=== PATIENT | male | born 1980 | race Caucasian/White ===

== ENCOUNTER 2020-12-02 10:37 | Emergency (ER) | payer OTHER ==
[2020-12-02 10:56] VITALS: PULSE 95; BMI 33.0
[2020-12-02 13:04] LABS: BASO % 0.8 % (0-2.0); EOS % 1.4 % (0-4.5); HEMATOCRIT 43.1 % (35.4-49); HEMOGLOBIN 14.2 GM/dL (11.7-16.9); LYMPH % 32.7 % (8-40); MCH 28.2 pg (25.7-33.7); MEAN CELL VOLUME 85.6 fl (80-96); MEAN PLT VOLUME 9.3 fl (7.5-11.1); MONO % 6.9 % (3.8-10.2); NEUT % 58.2 % (42.8-82.8); PLATELET COUNT 275 K/MM3 (134-434); RBC 5.04 M/mm3 (4.00-5.60); RDW 13.5 % (11.9-15.9); WHITE BLOOD COUNT 7.4 K/mm3 (4.0-10.0)
[2020-12-02 13:30] LABS: CHLORIDE 107 mmol/L (98-107); SODIUM 139 mmol/L (136-145)
[2020-12-02 13:33] LABS: CALCIUM 9.2 mg/dL (8.5-10.1)
[2020-12-02 13:34] LABS: ALBUMIN 3.7 g/dl (3.4-5.0); ANION GAP 5 MMOL/L (8-16); BLOOD UREA NITROGEN 10.4 mg/dL (7-18); CO2 28 mmol/L (21-32); GLUCOSE,RANDOM 88 mg/dL (74-106)
[2020-12-02 13:36] LABS: SGOT/AST 16 U/L (15-37); SGPT/ALT 29 U/L (13-61)
[2020-12-02 13:37] LABS: CREATININE 0.9 mg/dL (0.55-1.3)
[2020-12-02 13:38] LABS: BILIRUBIN,TOTAL 0.5 mg/dL (0.2-1)
[2020-12-02 13:39] LABS: TOT PROT 7.3 g/dl (6.4-8.2)
[2020-12-02 13:40] LABS: ALK PHOS 79 U/L (45-117)
[2020-12-02 15:08] VITALS: BP 141/88; TEMP 98
== END 2020-12-02 15:24 | disposition home or self-care (01) ==
LOC: JER 10:37
DX: R07.9 Chest pain, unspecified (principal)
CPT/HCPCS: 36415; 71046-TC-FY; 80053; 82550; 84484; 85025; 93005; 93010; 99283-25

== ENCOUNTER 2021-12-07 11:13 | Emergency (ER) | payer OTHER ==
[2021-12-07 11:50] VITALS: BP 155/96; PULSE 100; TEMP 98; BMI 32.8
[2021-12-07] MEDS ORDERED: IBUPROFEN 600 MG TABLET (FP) PO ONE ×2 (12:24→12:44)
== END 2021-12-07 12:54 | disposition home or self-care (01) ==
LOC: JERFT 11:13
DX: H60.501 Unspecified acute noninfective otitis externa, right ear (principal)
CPT/HCPCS: 99283-25

== ENCOUNTER 2022-10-24 15:30 | Emergency (ER) | payer OTHER ==
[2022-10-24 15:38] VITALS: RESP 18; BMI 33.6
[2022-10-24 18:11] LABS: BASO % 0.8 % (0-2.0); EOS % 3.5 % (0-4.5); HEMATOCRIT 44.1 % (35.4-49); HEMOGLOBIN 14.7 GM/dL (11.7-16.9); LYMPH % 38.3 % (8-40); MCH 27.6 pg (25.7-33.7); MCHC 33.3 g/dl (32.0-35.9); MEAN CELL VOLUME 82.8 fl (80-96); MEAN PLT VOLUME 9.2 fl (7.5-11.1); MONO % 10.7 % (3.8-10.2); NEUT % 46.7 % (42.8-82.8); PLATELET COUNT 259 10^3/uL (134-434); RBC 5.33 M/mm3 (4.00-5.60); RDW 13.3 % (11.9-15.9); WHITE BLOOD COUNT 6.4 K/mm3 (4.0-10.0)
[2022-10-24] MEDS ORDERED: ACETAMINOPHEN 500 MG TABLET (FP) PO ONE (18:16)
[2022-10-24] MEDS ORDERED: SODIUM CHLORIDE 0.9% 1000 ML INFUS.BAG IV ONE (18:16)
[2022-10-24 18:25] LABS: INR 0.97 (0.83-1.09); PROTHROMBIN TIME (PATIENT) 11.3 SEC (9.7-13.0)
[2022-10-24 18:35] LABS: CALCIUM 9.7 mg/dL (8.5-10.1)
[2022-10-24 18:36] LABS: ALBUMIN 3.6 g/dl (3.4-5.0); BLOOD UREA NITROGEN 18.4 mg/dL (7-18)
[2022-10-24 18:39] LABS: CREATININE 1.1 mg/dL (0.55-1.3)
[2022-10-24 18:40] LABS: BILIRUBIN,TOTAL 0.3 mg/dL (0.2-1); TOT PROT 7.2 g/dl (6.4-8.2)
[2022-10-24] MEDS ORDERED: ACETAMINOPHEN 500 MG TABLET (FP) ONE (18:40)
[2022-10-24 18:44] LABS: N-TERMINAL BNP 7.2 pg/ml (5-125)
[2022-10-24 20:24] VITALS: BP 137/90; PULSE 79; TEMP 98.3
== END 2022-10-24 21:08 | disposition home or self-care (01) ==
LOC: JER 15:30
DX: R07.89 Other chest pain (principal)
CPT/HCPCS: 36415; 71046-TC-FY; 80053; 83880; 84484; 85025; 85610; 85730; 93005; 93010; 99285-25

== ENCOUNTER 2023-10-25 12:45 | Emergency (ER) | payer OTHER ==
[2023-10-25 12:52] VITALS: BP 136/86; PULSE 107; RESP 17; TEMP 99.1
[2023-10-25] MEDS ORDERED: ACETAMINOPHEN INJECTION 100 ML IVPB ONE (14:14)
[2023-10-25] MEDS ORDERED: DEXAMETHASONE SOD PHOSPHATE 10 MG/1 ML VIAL ONE (14:14)
[2023-10-25] MEDS ORDERED: KETOROLAC TROMETHAMINE 15 MG/ML VIAL ONE (14:14)
[2023-10-25 14:16] LABS: BASO % 0.5 % (0-2.0); EOS % 0.4 % (0-4.5); HEMATOCRIT 47.4 % (35.4-49); HEMOGLOBIN 15.4 GM/dL (11.7-16.9); LYMPH % 17.1 % (8-40); MCH 27.8 pg (25.7-33.7); MCHC 32.5 g/dl (32.0-35.9); MEAN CELL VOLUME 85.6 fl (80-96); MEAN PLT VOLUME 8.7 fl (7.5-11.1); MONO % 10.8 % (3.8-10.2); NEUT % 71.2 % (42.8-82.8); PLATELET COUNT 243 10^3/uL (134-434); RBC 5.54 M/mm3 (4.00-5.60); RDW 13.4 % (11.9-15.9); WHITE BLOOD COUNT 12.1 K/mm3 (4.0-10.0)
[2023-10-25] MEDS: DEXAMETHASONE SOD PHOSPHATE 10 MG/1 ML VIAL IVPUSH ONE (14:25)
[2023-10-25] MEDS: KETOROLAC TROMETHAMINE 15 MG/ML VIAL IVPUSH ONE (14:28)
[2023-10-25] MEDS: SODIUM CHLORIDE 0.9% 500 ML INFUS.BAG IV ONE (14:31)
[2023-10-25] MEDS: ACETAMINOPHEN 1000 MG/100 ML BAG IVPB ONE (14:31)
[2023-10-25 14:39] LABS: THROAT:GRP A STREP DETECTED (NOTDETECTED)
[2023-10-25 14:51] LABS: POTASSIUM 3.4 mmol/L (3.5-5.1)
[2023-10-25 14:53] LABS: CALCIUM 9.1 mg/dL (8.5-10.1)
[2023-10-25 14:54] LABS: ALBUMIN 3.8 g/dl (3.4-5.0); BLOOD UREA NITROGEN 17.2 mg/dL (7-18)
[2023-10-25 14:57] LABS: CREATININE 1.3 mg/dL (0.55-1.3)
[2023-10-25 14:58] LABS: BILIRUBIN,TOTAL 0.9 mg/dL (0.2-1)
[2023-10-25] MEDS ORDERED: AMOXICILLIN 500 MG CAPSULE (FP) ONE (16:47)
[2023-10-25] MEDS ORDERED: POTASSIUM CHLORIDE ORAL LIQUID 20 MEQ/15 ML ONE (16:48)
[2023-10-25] MEDS: AMOXICILLIN 500 MG CAPSULE (FP) PO ONE (16:53)
[2023-10-25] MEDS: POTASSIUM CHLORIDE ORAL LIQUID 20 MEQ/15 ML PO ONE (16:53)
== END 2023-10-25 17:49 | disposition home or self-care (01) ==
LOC: JER 12:45
PROC: 3E030NZ Introduction of Analgesics, Hypnotics, Sedatives into Peripheral Vein, Open Approach (ICD-10-PCS; principal; 2023-10-25)
PROC: 3E0303Z Introduction of Anti-inflammatory into Peripheral Vein, Open Approach (ICD-10-PCS; 2023-10-25)
PROC: 3E030GC Introduction of Other Therapeutic Substance into Peripheral Vein, Open Approach (ICD-10-PCS; 2023-10-25)
DX: R50.9 Fever, unspecified (principal); R51.9 Headache, unspecified; R53.1 Weakness; H92.09 Otalgia, unspecified ear; R00.0 Tachycardia, unspecified; J02.0 Streptococcal pharyngitis; J03.00 Acute streptococcal tonsillitis, unspecified; Z20.822 Contact with and (suspected) exposure to COVID-19
CPT/HCPCS: 0241U-QW; 36415; 70491-TC; 80053; 85025; 87651; 96374; 96375; 99285-25; J0131; J1100